=== PATIENT | male | born 1970 | race Caucasian/White ===

== ENCOUNTER 2020-12-10 09:17 | Emergency (ER) | payer OTHER ==
[2020-12-10 10:05] LABS: BASOPHIL 0.2 % (0-2); HGB 16.4 g/dl (13.2-18.0); MCH 31.1 pg (25.0-31.0); MCHC 34.9 g/dL (32.0-36.0); MCV 89.2 fL (78.0-100.0); MONOCYTE 6.7 % (0-12); MPV 10.9 fL (6.0-9.5); NEUTROPHIL 55.8 % (41-80); NRBC 0; PLT 315 K/uL (150-400); RBC 5.27 M/uL (4.70-6.00); RDW 12.8 % (11.5-14.0); WBC 12.1 K/uL (4.0-10.5)
[2020-12-10 10:10] LABS: LACTIC ACID 1.2 mmol/L (0.4-1.9)
[2020-12-10 10:11] LABS: ALBUMIN 4.2 g/dL (3.4-5.0); ALKALINE PHOSHATASE 63 U/L (46-116); ALT 27 U/L (16-63); AST 12 U/L (15-37); BILIRUBIN - TOTAL 0.4 mg/dL (0.2-1.0); BUN 14 mg/dL (7-18); BUN/CREAT RATIO (CALC) 16.3 RATIO; C-REACTIVE PROTEIN < 0.20 mg/dL (<=0.90); CHLORIDE 108 mmol/L (98-107); CO2 (BICARBONATE) 23 mmol/L (21-32); CREATININE 0.86 mg/dL (0.67-1.17); GLUCOSE 117 mg/dL (74-106); LIPASE 75 U/L (73-393); POTASSIUM 4.5 mmol/L (3.5-5.1); TOTAL PROTEIN 7.2 g/dL (6.4-8.2)
[2020-12-10 10:14] LABS: PRO-BNP 34 pg/mL (<125)
[2020-12-10 10:32] LABS: BILIRUBIN NEGATIVE (NEGATIVE); BLOOD NEGATIVE Ery/uL (NEGATIVE); CLARITY CLEAR (CLEAR); COLOR YELLOW (YELLOW); GLUCOSE (U) NORMAL (NORMAL); LEUKOCYTES NEGATIVE Leu/uL (NEGATIVE); NITRITE NEGATIVE (NEGATIVE); PROTEIN NEGATIVE (NEGATIVE); UROBILINOGEN 0.2 mg/dL (0.2-1.0); pH 5.5 (5.0-9.0)
[2020-12-10 10:37] LABS: AMPHETAMINES NEGATIVE (NEGATIVE); BARBITURATES NEGATIVE (NEGATIVE); ECSTASY (MDMA) NEGATIVE (NEGATIVE); MARIJUANA (THC) POSITIVE (NEGATIVE); METHADONE NEGATIVE (NEGATIVE); OPIATES NEGATIVE (NEGATIVE); OXYCODONE NEGATIVE (NEGATIVE)
[2020-12-10] MEDS ORDERED: PROTONIX 40MG T40 MG PO (13:53)
== END 2020-12-10 14:12 | disposition home or self-care (01) ==
LOC: FER 09:17
PROVIDERS: Internal Medicine
DX: K29.00 Acute gastritis without bleeding (principal); F17.210 Nicotine dependence, cigarettes, uncomplicated
CPT/HCPCS: 36415; 71045; 80053; 80305; 81003; 83605; 83690; 83880; 84484; 85025; 86140; 93005; C9113